=== PATIENT | female | born 1985 | race Caucasian/White ===

== ENCOUNTER 2017-01-16 18:36 | Emergency (ER) | payer BC, MEDICAID ==
[~2017-01-16] VITALS: Ht 170.2 cm; Wt 90.7 kg
[2017-01-16 19:36] LABS: Basophils # (auto) 0 uL; Basophils % (auto) 0.5 % (0.0-2.0); Eosinophils # (auto) 0.2 uL; Eosinophils % (auto) 1.7 % (0.0-7.0); Hematocrit 39.5 % (36.0-46.0); Hemoglobin 13.1 g/dL (12.2-16.2); Lymphocytes # (auto) 4.1 uL; Lymphocytes % (auto) 42.6 % (10.0-50.0); Mean Corpuscular Hemoglobin 28.8 pg (28.0-32.0); Mean Corpuscular Hgb Conc. 33.2 g/dL (32.0-36.0); Mean Corpuscular Volume 86.8 fL (80.0-100.0); Mean Platelet Volume 9.6 fL (7.4-10.4); Monocytes # (auto) 0.7 uL; Monocytes % (auto) 7.1 % (0.0-12.0); Neutrophils # (auto) 4.6 uL; Neutrophils % (auto) 48.1 % (37.0-80.0); Platelet Count (auto) 274 10^3/uL (140-450); Red Cell Distribution Width 14.2 % (11.6-16.0); White Blood Cell 9.6 10^3/uL (4.4-10.8)
[2017-01-16 19:51] LABS: Albumin 3.7 g/dL (3.4-5.0); Alkaline Phosphatase 64 U/L (45-117); Anion Gap 10 (5-15); Aspartate Aminotransferase 15 U/L (15-37); BUN/Creatinine Ratio 20.3; Bilirubin, Total 0.2 mg/dL (0.2-1.0); Blood Urea Nitrogen 14 mg/dL (7-18); Calcium 8.8 mg/dL (8.5-10.1); Carbon Dioxide 23 mmol/L (21-32); Chloride 107 mmol/L (98-107); GFR African American 128 mL/min; GFR Non-African American 106 mL/min; Glucose 90 mg/dL (74-106); Magnesium 2.2 mg/dL (1.6-2.6); Potassium 3.7 mmol/L (3.5-5.1); Sodium 140 mmol/L (136-145); Total Protein 7.8 g/dL (6.4-8.2)
[2017-01-16 23:58] VITALS: BP 130/89
== END 2017-01-17 02:14 | disposition left against medical advice (07) ==
LOC: ER 18:41
DX: R07.9 Chest pain, unspecified (principal); Z53.21 Procedure and treatment not carried out due to patient leaving prior to being seen by health care provider
CPT/HCPCS: 36415; 80053; 83735; 84484; 85025; 93005

== ENCOUNTER 2017-12-05 17:32 | Emergency (ER) | payer BC ==
[~2017-12-05] VITALS: Ht 170.2 cm; Wt 89.4 kg
[2017-12-05 18:01] VITALS: BP 122/67
== END 2017-12-05 22:18 | disposition left against medical advice (07) ==
LOC: ER 17:32
DX: M79.604 Pain in right leg (principal); Z53.21 Procedure and treatment not carried out due to patient leaving prior to being seen by health care provider
CPT/HCPCS: 93971